=== PATIENT | male | born 1960 | race African-American/Black ===

== ENCOUNTER 2017-08-06 00:06 | Inpatient (IN) | payer MEDICAID ==
[~2017-08-06] VITALS: Ht 182.9 cm; Wt 74.8 kg
[2017-08-06] MEDS ORDERED: ONDANSETRON HCL 4MG/2ML VIAL IV STA (00:28)
[2017-08-06] MEDS ORDERED: PANTOPRAZOLE SODIUM 40 MG/VIAL IV STA (00:28)
[2017-08-06] MEDS ORDERED: SODIUM CHLORIDE 0.9% 1,000 ML IV ONE (00:28)
[2017-08-06] MEDS ORDERED: MAGNESIUM/ALUMINUM HYDROXIDE/SIMETHICONE 30ML UDC PO STA (00:28)
[2017-08-06] MEDS ORDERED: MORPHINE SULFATE 4 MG/ML CPJ (NOT FOR IM USE) IV ONE (00:45)
[2017-08-06] MEDS ORDERED: LORAZEPAM 2MG/ML CPJ IV ONE (00:45)
[2017-08-06 00:59] LABS: BASOPHILS % 0.8 % (0.0-2.0); EOSINOPHILS % 0.6 % (0.0-5.0); HEMATOCRIT. 34.5 % (42.0-52.0); HEMOGLOBIN. 11.6 g/dL (14.0-18.0); LYMPHOCYTES % 27.8 % (20.0-50.0); MEAN CORPUSCULAR HEMOGLOBIN 29.7 pg (28.0-32.0); MEAN CORPUSCULAR VOLUME 88.1 fL (80.0-94.0); MEAN PLATELET VOLUME 7.8 fl (7.4-10.4); MONOCYTES % 11.3 % (2.0-8.0); NEUTROPHILS % 59.5 % (40.0-76.0); PLATELET 121 x1000/uL (130-400); RED BLOOD CELL COUNT 3.92 mill/uL (4.7-6.1); RED CELL DISTRIBUTION WIDTH 16.1 % (11.6-14.6)
[2017-08-06 01:04] LABS: CHLORIDE 79 mEq/L (98-107)
[2017-08-06 01:12] LABS: CARBON DIOXIDE 28 mEq/L (21-32)
[2017-08-06 01:15] LABS: INR 1.2; PROTHROMBIN TIME 12.4 sec (9.4-11.6)
[2017-08-06 01:38] LABS: ETHANOL BLOOD 272 mg/dL
[2017-08-06 08:54] VITALS: BP 146/91
[2017-08-06 08:57] VITALS: BP 146/91
[2017-08-06 11:40] VITALS: BP 127/71
[2017-08-06] MEDS ORDERED: PNEUMOCOCCAL 23-VAL P-SAC VAC 0.5 ML IM ONE (12:00)
[2017-08-06] MEDS ORDERED: INFLUENZA VIRUS VACCINE 0.5ML SYR IM ONE (12:00)
[2017-08-06] MEDS: ONDANSETRON HCL 4MG/2ML VIAL IV PRN (12:34)
[2017-08-06] MEDS: ACETAMINOPHEN 325MG TABLET PO PRN (12:35)
[2017-08-06] MEDS ORDERED: ACETAMINOPHEN 325MG TABLET PO PRN (13:00)
[2017-08-06] MEDS ORDERED: SODIUM CHLORIDE 3% 500ML IV SOLN IV ONE (13:00)
[2017-08-06] MEDS ORDERED: CLONIDINE 0.1MG TABLET PO PRN (13:00)
[2017-08-06] MEDS ORDERED: DOCUSATE SODIUM 100MG CAPSULE PO PRN (13:00)
[2017-08-06] MEDS ORDERED: HYDROCODONE/ACETAMINOPHEN 10/325MG TABLET PO PRN (13:00)
[2017-08-06] MEDS ORDERED: DIPHENHYDRAMINE 50MG/ML VIAL IV PRN (13:00)
[2017-08-06] MEDS ORDERED: SIMETHICONE 40 MG/0.6 ML 30ML ONE ×2 (13:50→15:58)
[2017-08-06] MEDS ORDERED: SODIUM CHLORIDE 0.9% 10ML VIAL ONE (13:50)
[2017-08-06] MEDS ORDERED: SODIUM CHLORIDE 3% 250 ML IV NR (14:00)
[2017-08-06] MEDS: PANTOPRAZOLE SODIUM 40 MG/VIAL IV SCH ×2 (14:07→21:26)
[2017-08-06] MEDS ORDERED: MVI, ADULT NO.1 10 ML, FOLIC ACID 1 MG, THIAMINE HCL 100 MG in SODIUM CHLORIDE 0.9% 1,0... IV NR ×4 (15:00)
[2017-08-06 15:36] LABS: CLARITY URINE CLEAR (CLEAR); COLOR URINE YELLOW (YELLOW); GLUCOSE URINE NEGATIVE (NEGATIVE); KETONES URINE NEGATIVE (NEGATIVE); LEUKOCYTE ESTERASE URINE 1+ (NEGATIVE); NITRITE URINE NEGATIVE (NEGATIVE); OCCULT BLOOD URINE NEGATIVE (NEGATIVE); PH URINE 6.5 (4.5-8.0); PROTEIN URINE NEGATIVE (NEGATIVE); SPECIFIC GRAVITY URINE 1.011 (1.005-1.030)
[2017-08-06 15:52] LABS: *AMPHETAMINES SCREEN URINE NEGATIVE (NEGATIVE); *BARBITURATES SCREEN URINE NEGATIVE (NEGATIVE); *BENZODIAZEPINES SCREEN URINE NEGATIVE (NEGATIVE); *COCAINE SCREEN URINE PRESUMTIVE POSITIVE (NEGATIVE); CANNABINOID URINE SCREEN NEGATIVE (NEGATIVE); METHADONE URINE SCREEN NEGATIVE (NEGATIVE); OPIATES URINE SCREEN NEGATIVE (NEGATIVE); PHENCYCLIDINE URINE SCREEN NEGATIVE (NEGATIVE)
[2017-08-06] MEDS ORDERED: FENTANYL CITRATE/PF 50MCG/ML 2ML VIAL IV PRN (15:57)
[2017-08-06] MEDS ORDERED: MIDAZOLAM HCL 5 MG/5 ML VIAL IV PRN (15:57)
[2017-08-06] MEDS ORDERED: FENTANYL CITRATE/PF 50MCG/ML 2ML VIAL ONE (15:58)
[2017-08-06] MEDS ORDERED: MIDAZOLAM HCL 5 MG/5 ML VIAL ONE (15:58)
[2017-08-06] MEDS: LEVETIRACETAM 500MG TABLET PO SCH ×2 (18:23→21:26)
[2017-08-06 18:26] LABS: TROPONIN I 0.03 ng/mL (0.00-0.04)
[2017-08-06 20:00] VITALS: BP 155/86
[2017-08-06] MEDS ORDERED: POTASSIUM CHLORIDE INJ 40 MEQ in DEXT 5% WATER 500 ML IV NR ×4 (20:00)
[2017-08-07] VITALS: BP 144/75
[2017-08-07 03:55] LABS: TROPONIN I 0.04 ng/mL (0.00-0.04)
[2017-08-07 04:00] VITALS: BP 155/88
[2017-08-07 06:22] LABS: BASOPHILS % 1.2 % (0.0-2.0); EOSINOPHILS % 0.1 % (0.0-5.0); HEMOGLOBIN. 10.6 g/dL (14.0-18.0); LYMPHOCYTES % 13.8 % (20.0-50.0); MEAN CORPUSCULAR HEMOGLOBIN 29.7 pg (28.0-32.0); MEAN CORPUSCULAR VOLUME 89.3 fL (80.0-94.0); MEAN PLATELET VOLUME 8.5 fl (7.4-10.4); MONOCYTES % 12.5 % (2.0-8.0); NEUTROPHILS % 72.4 % (40.0-76.0); PLATELET 99 x1000/uL (130-400); RED BLOOD CELL COUNT 3.59 mill/uL (4.7-6.1); RED CELL DISTRIBUTION WIDTH 16.4 % (11.6-14.6)
[2017-08-07 06:52] LABS: AMMONIA 59 uMol/L (<32)
[2017-08-07 07:06] LABS: CHLORIDE 93 mEq/L (98-107)
[2017-08-07 07:21] LABS: CARBON DIOXIDE 26 mEq/L (21-32); HDL CHOLESTEROL 58 mg/dL (40-59); LDL CHOLESTEROL 45 mg/dL (5-100)
[2017-08-07 08:00] VITALS: BP 156/94
[2017-08-07] MEDS: PANTOPRAZOLE SODIUM 40 MG/VIAL IV SCH ×2 (08:52→21:01)
[2017-08-07] MEDS: LEVETIRACETAM 500MG TABLET PO SCH ×2 (08:52→21:01)
[2017-08-07 11:48] VITALS: BP 132/93
[2017-08-07 12:15] LABS: BG BASE EXCESS 3.7 mmol/L (-2.0-2.0); BG DEOXYHEMOGLOBIN 3.1 % (0.0-5.0); BG FRACTION INSPIRED OXYGEN 21; BG HCO3 ACT 27.2 mmol/L (22.0-26.0); BG METHEMOGLOBIN 0.2 % (0.0-1.5); BG OXYGEN SATURATION 96.9 % (92.0-98.5); BG OXYHEMOGLOBIN 95.7 % (94.0-97.0); BG PCO2 37.5 mmHg (35.0-45.0); BG PH 7.479 (7.350-7.450); BG PO2 84.7 mmHg (75.0-100.0); BG SAMPLE SITE RIGHT RADIAL; BG TOTAL HEMOGLOBIN 11.8 g/dL (12.0-18.0); BG VENT MODE ROOM AIR
[2017-08-07] MEDS ORDERED: CHLORDIAZEPOXIDE 5 MG CAPSULE PO SCH (14:00)
[2017-08-07] MEDS: CHLORDIAZEPOXIDE 25MG CAPSULE PO SCH ×2 (14:24→21:01)
[2017-08-07 15:57] VITALS: BP 127/77
[2017-08-07] MEDS ORDERED: FOLIC ACID 1 MG, THIAMINE HCL 100 MG, MVI, ADULT NO.1 10 ML in DEXTROSE 5% WATER 1,000 ML IV ONE ×4 (16:00)
[2017-08-07 20:55] VITALS: BP 116/69
[2017-08-08 00:26] VITALS: BP 104/66
[2017-08-08 04:00] VITALS: BP 139/86
[2017-08-08] MEDS: CHLORDIAZEPOXIDE 25MG CAPSULE PO SCH ×3 (05:57→20:49)
[2017-08-08 07:12] LABS: HEMOGLOBIN 10.6 g/dL (14.0-18.0); MEAN CORPUSCULAR HEMOGLOBIN 29.7 pg (28.0-32.0); MEAN CORPUSCULAR VOLUME 89.5 fL (80.0-94.0); PLATELET 92 x1000/uL (130-400); RED BLOOD CELL COUNT 3.58 mill/uL (4.7-6.1); RED CELL DISTRIBUTION WIDTH 16.6 % (11.6-14.6)
[2017-08-08 07:49] LABS: CARBON DIOXIDE 29 mEq/L (21-32); CHLORIDE 92 mEq/L (98-107)
[2017-08-08 07:53] LABS: CREATINE KINASE 331 IU/L (39-308)
[2017-08-08 07:55] LABS: HEPATITIS B SURFACE ANTIGEN NEGATIVE
[2017-08-08 08:00] VITALS: BP 144/90
[2017-08-08] MEDS: PANTOPRAZOLE SODIUM 40 MG/VIAL IV SCH ×2 (08:20→20:49)
[2017-08-08] MEDS: LEVETIRACETAM 500MG TABLET PO SCH ×2 (08:20→20:48)
[2017-08-08 08:24] LABS: HEPATITIS B CORE AB IGM NEGATIVE
[2017-08-08 08:25] LABS: HEPATITIS A AB IGM NEGATIVE (NEGATIVE)
[2017-08-08 12:00] VITALS: BP 141/86
[2017-08-08] MEDS ORDERED: SODIUM CHLORIDE 3% 500ML IV SOLN IV ONE (13:30)
[2017-08-08] MEDS ORDERED: POTASSIUM CHLORIDE INJ 40 MEQ in DEXT 5% WATER 500 ML IV NR (14:00)
[2017-08-08] MEDS ORDERED: SODIUM CHLORIDE 3% 250 ML IV SCH (15:00)
[2017-08-08] MEDS: LACTULOSE 20G/30ML UDC PO SCH (15:04)
[2017-08-08] MEDS: ONDANSETRON HCL 4MG/2ML VIAL IV PRN (15:06)
[2017-08-08 16:00] VITALS: BP 148/92
[2017-08-08 19:43] VITALS: BP 112/77
[2017-08-08] MEDS: ACETAMINOPHEN 325MG TABLET PO PRN (20:48)
[2017-08-09 00:22] VITALS: BP 142/84
[2017-08-09 04:47] VITALS: BP 127/81
[2017-08-09] MEDS: CHLORDIAZEPOXIDE 25MG CAPSULE PO SCH ×3 (05:36→20:59)
[2017-08-09 07:12] LABS: HEMATOCRIT 30.7 % (42.0-52.0); HEMOGLOBIN 10.1 g/dL (14.0-18.0); MEAN CORPUSCULAR HEMOGLOBIN 29.8 pg (28.0-32.0); MEAN CORPUSCULAR VOLUME 90.3 fL (80.0-94.0); PLATELET 108 x1000/uL (130-400); RED CELL DISTRIBUTION WIDTH 16.4 % (11.6-14.6)
[2017-08-09 08:00] VITALS: BP 143/79
[2017-08-09 08:09] LABS: AMMONIA 86 uMol/L (<32)
[2017-08-09 08:20] LABS: CARBON DIOXIDE 30 mEq/L (21-32); CHLORIDE 100 mEq/L (98-107)
[2017-08-09] MEDS: LEVETIRACETAM 500MG TABLET PO SCH ×2 (08:34→20:59)
[2017-08-09] MEDS: LACTULOSE 20G/30ML UDC PO SCH ×3 (08:34→20:59)
[2017-08-09] MEDS: PANTOPRAZOLE SODIUM 40 MG/VIAL IV SCH ×2 (08:34→20:58)
[2017-08-09 12:00] VITALS: BP 108/73
[2017-08-09] MEDS ORDERED: SODIUM CHLORIDE 0.9% 1,000 ML IV NR (12:00)
[2017-08-09] MEDS ORDERED: SODIUM CHLORIDE 0.9% 1,000 ML IV SCH (14:15)
[2017-08-09] MEDS: LEVOFLOXACIN 500MG PREMIX 100 ML IV SCH (14:25)
[2017-08-09 17:35] VITALS: BP 142/86
[2017-08-09 20:00] VITALS: BP 138/83
[2017-08-09] MEDS: ONDANSETRON HCL 4MG/2ML VIAL IV PRN (20:59)
[2017-08-10] VITALS: BP 147/94
[2017-08-10 04:00] VITALS: BP 140/90
[2017-08-10] MEDS: CHLORDIAZEPOXIDE 25MG CAPSULE PO SCH ×3 (06:15→21:13)
[2017-08-10 07:19] VITALS: BP 127/76
[2017-08-10 07:40] LABS: HEMATOCRIT 31.1 % (42.0-52.0); HEMOGLOBIN 10.2 g/dL (14.0-18.0); MEAN CORPUSCULAR HEMOGLOBIN 29.9 pg (28.0-32.0); PLATELET 116 x1000/uL (130-400); RED BLOOD CELL COUNT 3.42 mill/uL (4.7-6.1); RED CELL DISTRIBUTION WIDTH 16.9 % (11.6-14.6)
[2017-08-10 07:42] LABS: AMMONIA 52 uMol/L (<32)
[2017-08-10 08:44] LABS: CARBON DIOXIDE 26 mEq/L (21-32); CHLORIDE 97 mEq/L (98-107)
[2017-08-10] MEDS: LACTULOSE 20G/30ML UDC PO SCH ×3 (09:00→09:10)
[2017-08-10] MEDS: LEVETIRACETAM 500MG TABLET PO SCH ×2 (09:05→21:13)
[2017-08-10] MEDS: PANTOPRAZOLE SODIUM 40 MG/VIAL IV SCH ×2 (09:05→21:13)
[2017-08-10] MEDS: ONDANSETRON HCL 4MG/2ML VIAL IV PRN (09:05)
[2017-08-10] MEDS: ACETAMINOPHEN 325MG TABLET PO PRN (09:05)
[2017-08-10] MEDS: LEVOFLOXACIN 500MG PREMIX 100 ML IV SCH (10:30)
[2017-08-10] MEDS ORDERED: POTASSIUM CHLORIDE 20MEQ TABLET SR PO NR (10:45)
[2017-08-10 11:34] VITALS: BP 123/76
[2017-08-10 15:41] VITALS: BP 123/80
[2017-08-10 20:12] VITALS: BP 122/56
[2017-08-11] VITALS: BP 133/70
[2017-08-11 04:00] VITALS: BP 134/85
[2017-08-11] MEDS: CHLORDIAZEPOXIDE 25MG CAPSULE PO SCH ×3 (06:23→21:25)
[2017-08-11 07:13] LABS: HEMATOCRIT 32.1 % (42.0-52.0); HEMOGLOBIN 10.7 g/dL (14.0-18.0); MEAN CORPUSCULAR HEMOGLOBIN 30.2 pg (28.0-32.0); MEAN CORPUSCULAR VOLUME 90.6 fL (80.0-94.0); PLATELET 131 x1000/uL (130-400); RED BLOOD CELL COUNT 3.55 mill/uL (4.7-6.1); RED CELL DISTRIBUTION WIDTH 16.8 % (11.6-14.6)
[2017-08-11 07:37] LABS: CARBON DIOXIDE 28 mEq/L (21-32); CHLORIDE 98 mEq/L (98-107)
[2017-08-11 08:00] VITALS: BP 143/83
[2017-08-11] MEDS: LACTULOSE 20G/30ML UDC PO SCH (09:00)
[2017-08-11] MEDS: LEVETIRACETAM 500MG TABLET PO SCH ×2 (09:06→21:25)
[2017-08-11] MEDS: PANTOPRAZOLE SODIUM 40 MG/VIAL IV SCH ×2 (09:06→21:25)
[2017-08-11] MEDS: ACETAMINOPHEN 325MG TABLET PO PRN ×2 (09:07→21:26)
[2017-08-11] MEDS: LEVOFLOXACIN 500MG PREMIX 100 ML IV SCH (11:11)
[2017-08-11 12:00] VITALS: BP 183/75
[2017-08-11 16:41] VITALS: BP 135/82
[2017-08-11] MEDS: CEFAZOLIN 1000MG PREMIX 50 ML IV SCH (18:32)
[2017-08-11 20:00] VITALS: BP_SYST 106; BP_SYST 118; BP_DIAS 64; BP_DIAS 71
[2017-08-12] VITALS (7 sets, daily range): BP systolic 93–149; BP diastolic 53–94
[2017-08-12] MEDS: CEFAZOLIN 1000MG PREMIX 50 ML IV SCH ×3 (02:37→17:40)
[2017-08-12] MEDS: CHLORDIAZEPOXIDE 25MG CAPSULE PO SCH ×3 (06:21→21:28)
[2017-08-12 07:30] LABS: AMMONIA 53 uMol/L (<32)
[2017-08-12] MEDS: LACTULOSE 20G/30ML UDC PO SCH (08:45)
[2017-08-12] MEDS: LEVETIRACETAM 500MG TABLET PO SCH ×2 (08:45→21:28)
[2017-08-12] MEDS: PANTOPRAZOLE SODIUM 40 MG/VIAL IV SCH ×2 (08:45→21:28)
[2017-08-12] MEDS ORDERED: LACTULOSE 20G/30ML UDC PO SCH (17:00)
[2017-08-13] VITALS: BP 107/65
[2017-08-13] MEDS: CEFAZOLIN 1000MG PREMIX 50 ML IV SCH (02:38)
[2017-08-13 04:00] VITALS: BP 130/80
[2017-08-13] MEDS: CHLORDIAZEPOXIDE 25MG CAPSULE PO SCH (06:50)
== END 2017-08-13 09:00 | disposition left against medical advice (07) | DRG 720 ==
LOC: ER 00:06 → 6WST 02:48 → ENRESERV 07:00 → 6WST 13:39
PROVIDERS: ADMIT Internal Medicine; ATTEND Internal Medicine
PROC: 0DB58ZX Excision of Esophagus, Via Natural or Artificial Opening Endoscopic, Diagnostic (ICD-10-PCS; principal; 2017-08-06 15:00)
DX: A41.9 Sepsis, unspecified organism (principal); K92.0 Hematemesis; K76.6 Portal hypertension; E44.0 Moderate protein-calorie malnutrition; E87.1 Hypo-osmolality and hyponatremia; M62.82 Rhabdomyolysis; K22.10 Ulcer of esophagus without bleeding; K70.30 Alcoholic cirrhosis of liver without ascites; E88.09 Other disorders of plasma-protein metabolism, not elsewhere classified; D64.9 Anemia, unspecified; J44.9 Chronic obstructive pulmonary disease, unspecified; E87.6 Hypokalemia; B19.20 Unspecified viral hepatitis C without hepatic coma; F14.10 Cocaine abuse, uncomplicated; F17.210 Nicotine dependence, cigarettes, uncomplicated; G89.29 Other chronic pain; I10 Essential (primary) hypertension; N39.0 Urinary tract infection, site not specified; Z53.21 Procedure and treatment not carried out due to patient leaving prior to being seen by health care provider; K31.9 Disease of stomach and duodenum, unspecified; E86.0 Dehydration; K44.9 Diaphragmatic hernia without obstruction or gangrene; F10.10 Alcohol abuse, uncomplicated; Y90.9 Presence of alcohol in blood, level not specified; Z91.19 Patient's noncompliance with other medical treatment and regimen; Z59.0 Homelessness; Z68.22 Body mass index [BMI] 22.0-22.9, adult
CPT/HCPCS: 36415; 36600; 71010; 76700; 80048; 80053; 80061; 80305; 81001; 82105; 82140; 82248; 82270; 82375; 82550; 82805; 83690; 84425; 84443; 84484; 85025; 85027; 85610; 86705; 86709; 86803; 87040; 87077; 87086; 87186; 87340; 88305; 88312; 90686; 90732; 93005; 93970; 96365; 96375; 97110; 97116; 97162; 97166; 97530; 99152; 99285; A4216; C1893; C9113; G0482; J0690; J1200; J1956; J2250; J2405; J3010; J3411; J3480; J3490; J7030; J7050; J7060; J7070

== ENCOUNTER 2017-08-14 19:09 | Emergency (ER) | payer MEDICAID ==
[~2017-08-14] VITALS: Ht 182.9 cm; Wt 73.0 kg
[2017-08-15] MEDS ORDERED: KETOROLAC 30MG/ML VIAL IV STA (08:40)
[2017-08-15] MEDS ORDERED: SODIUM CHLORIDE 0.9% 1,000 ML IV ONE (08:40)
[2017-08-15] MEDS ORDERED: ONDANSETRON HCL 4MG/2ML VIAL IV STA (08:40)
[2017-08-15 09:13] LABS: BASOPHILS % 2.3 % (0.0-2.0); EOSINOPHILS % 0.9 % (0.0-5.0); HEMATOCRIT. 30.5 % (42.0-52.0); HEMOGLOBIN. 10.1 g/dL (14.0-18.0); LYMPHOCYTES % 23.7 % (20.0-50.0); MEAN CORPUSCULAR HEMOGLOBIN 29.7 pg (28.0-32.0); MEAN PLATELET VOLUME 7.5 fl (7.4-10.4); MONOCYTES % 12.9 % (2.0-8.0); NEUTROPHILS % 60.2 % (40.0-76.0); PLATELET 179 x1000/uL (130-400); RED CELL DISTRIBUTION WIDTH 16.7 % (11.6-14.6)
[2017-08-15 09:22] LABS: INR 1.2; PROTHROMBIN TIME 12.4 sec (9.4-11.6)
[2017-08-15 09:25] LABS: CARBON DIOXIDE 26 mEq/L (21-32); CHLORIDE 102 mEq/L (98-107); ETHANOL BLOOD < 10 mg/dL
[2017-08-15] MEDS ORDERED: IOHEXOL-300 100 ML BOTTLE ONE (10:56)
[2017-08-15 11:32] LABS: CLARITY URINE CLEAR (CLEAR); COLOR URINE DARK YELLOW (YELLOW); GLUCOSE URINE NEGATIVE (NEGATIVE); KETONES URINE TRACE (NEGATIVE); LEUKOCYTE ESTERASE URINE NEGATIVE (NEGATIVE); NITRITE URINE NEGATIVE (NEGATIVE); OCCULT BLOOD URINE NEGATIVE (NEGATIVE); PH URINE 5.5 (4.5-8.0); PROTEIN URINE NEGATIVE (NEGATIVE); SPECIFIC GRAVITY URINE 1.021 (1.005-1.030)
[2017-08-15 11:45] LABS: *AMPHETAMINES SCREEN URINE NEGATIVE (NEGATIVE); *BARBITURATES SCREEN URINE NEGATIVE (NEGATIVE); *BENZODIAZEPINES SCREEN URINE PRESUMTIVE POSITIVE (NEGATIVE); *COCAINE SCREEN URINE NEGATIVE (NEGATIVE); CANNABINOID URINE SCREEN NEGATIVE (NEGATIVE); METHADONE URINE SCREEN NEGATIVE (NEGATIVE); OPIATES URINE SCREEN NEGATIVE (NEGATIVE); PHENCYCLIDINE URINE SCREEN NEGATIVE (NEGATIVE)
[2017-08-15 15:03] VITALS: BP 156/92
== END 2017-08-15 14:10 | disposition home or self-care (01) ==
LOC: ER 20:30
DX: R10.32 Left lower quadrant pain (principal); R11.2 Nausea with vomiting, unspecified; J45.909 Unspecified asthma, uncomplicated; E78.00 Pure hypercholesterolemia, unspecified; I10 Essential (primary) hypertension; F17.200 Nicotine dependence, unspecified, uncomplicated
CPT/HCPCS: 36415; 74177; 80053; 80305; 81003; 83690; 85025; 85610; 96361; 96374; 96375; 99285; G0482; J1885; J2405; J7030; Q9967; Z7610

== ENCOUNTER 2017-08-19 21:40 | Emergency (ER) | payer MEDICAID ==
[~2017-08-19] VITALS: Ht 180.3 cm; Wt 85.0 kg
[2017-08-20 07:30] VITALS: BP 130/83
== END 2017-08-20 07:44 | disposition home or self-care (01) ==
LOC: ER 21:47
DX: Z00.00 Encounter for general adult medical examination without abnormal findings (principal); F10.20 Alcohol dependence, uncomplicated; I10 Essential (primary) hypertension
CPT/HCPCS: 99284